=== PATIENT | male | born 1975 | race Caucasian/White ===

== ENCOUNTER 2022-07-25 04:10 | Emergency (ER) | payer OTHER ==
[~2022-07-25] VITALS: Ht 177.8 cm; Wt 77.0 kg
[2022-07-25 05:34] LABS: CHLORIDE 105 mEq/L (98-107); HEMATOCRIT. 42.7 % (42.0-52.0); HEMOGLOBIN. 14.2 g/dL (14.0-18.0); MEAN CORPUSCULAR HEMOGLOBIN 29.1 pg (28.0-32.0); MEAN CORPUSCULAR VOLUME 87.6 fL (80.0-94.0); MEAN PLATELET VOLUME 9.8 fl (7.4-10.4); PLATELET 161 x1000/uL (130-400); RED BLOOD CELL COUNT 4.87 mill/uL (4.7-6.1); RED CELL DISTRIBUTION WIDTH 17.7 % (11.6-14.6)
[2022-07-25] MEDS ORDERED: ASPIRIN 81MG TABLET PO ONE (06:30)
[2022-07-25] MEDS ORDERED: FUROSEMIDE 40MG/4ML VIAL IV ONE (06:30)
[2022-07-25 07:00] VITALS: BP 126/78
[2022-07-25 07:42] LABS: PLATELET ESTIMATE NORMAL
[2022-07-25] MEDS ORDERED: LORAZEPAM 0.5MG TABLET PO ONE (08:15)
[2022-07-25] MEDS ORDERED: ACETAMINOPHEN 325MG TABLET PO ONE (08:15)
== END 2022-07-25 08:27 | disposition left against medical advice (07) ==
LOC: ER 04:10 → EDBEDREQTM 06:57 → EDBEDREQ 06:57 → ER 08:27 → CANBEDREQ 07-26 08:36
DX: I11.0 Hypertensive heart disease with heart failure (principal); I50.43 Acute on chronic combined systolic (congestive) and diastolic (congestive) heart failure; R07.89 Other chest pain; F32.A Depression, unspecified; F15.10 Other stimulant abuse, uncomplicated; F17.210 Nicotine dependence, cigarettes, uncomplicated
CPT/HCPCS: 36415; 71045; 80053; 83880; 84484; 85025; 93005; 96374; 99291; J1940; Z7610